=== PATIENT | female | born 1945 ===

== ENCOUNTER 2025-02-15 14:20 | Outpatient (AMB) | payer MEDICARE, SELFPAY ==
--- OUTSIDE RECORDS SUMMARY | 2025-02-15 15:55 | XMS_ITS | Patient Health Record ---
Author Organization [facility] Address [address] [place] [address] Care Team Providers Care Exterior Door Installer Name Role Phone MATHEW COLLINS Primary Care Provider Kinga Macias [phone] Allergies Allergen (clinical drug ingredient) Drug/Non Drug Allergy documented on EMR Reaction Allergy Type Onset Date Status codeine CODEINE Unknown Drug Allergy Active Results Component Value Reference Range Notes Vitamin D, [id number] Reviewed date:07/23/2024 06:57:12 PM Interpretation: Performing Lab:[facility] [place], [address] [facility], Phone - [phone], Director - Homa Notes/Report: Vitamin D, 25-Hydroxy 18.0 30.0-100.0 ng/mL Vitamin D deficiency has been defined by the [place] of [employer] and an Endocrine Society practice guideline as a level of serum 25-OH vitamin D less than 20 ng/mL (1,2). The Endocrine Society went on to further define vitamin D insufficiency as a level between 21 and 29 ng/mL (2). 1. IOM ([place] of [employer]). 2010. Dietary reference intakes for calcium and D. [place]: The National Academies Press. 2. Jeff MF, [place], Tiera HEWITT, et al. Evaluation, treatment, and prevention of vitamin D deficiency: an Endocrine Society clinical practice guideline. JCEM. 2011 Dec; 96(7):1911-30. PDF Report Reviewed date:07/23/2024 06:55:14 PM Interpretation: Performing Lab:[facility] [place], [address] [place], [place], Phone - [phone], Director - Homa Notes/Report: PDF Report Reviewed date:07/03/2024 08:13:05 AM Interpretation: Performing Lab:[facility], [address] [place] [address], Phone - [phone], Director - Pauly Notes/Report: Comp. Metabolic Panel (14)-3 Reviewed date:07/03/2024 08:13:57 AM Interpretation: Performing Lab:[facility], [address] [place] [address], Phone - [phone], Director - Pauly Notes/Report: Glucose 103 70-99 mg/dL BUN 16 8-27 mg/dL Creatinine 0.74 0.57-1.00 mg/dL eGFR 83 >59 mL/min/1.73 BUN/Creatinine Ratio 22 12-28 Sodium 141 134-144 mmol/L Potassium 3.7 3.5-5.2 mmol/L Chloride 100 96-106 mmol/L Carbon Dioxide, Total 25 20-29 mmol/L Calcium 10.1 8.7-10.3 mg/dL Protein, Total 7.7 6.0-8.5 g/dL Albumin 4.5 3.8-4.8 g/dL Globulin, Total 3.2 1.5-4.5 g/dL Bilirubin, Total 0.4 0.0-1.2 mg/dL Alkaline Phosphatase 88 44-121 IU/L AST (SGOT) 17 0-40 IU/L ALT (SGPT) 12 0-32 IU/L PTH, Intact-[id number] Reviewed date:07/03/2024 08:14:06 AM Interpretation: Performing Lab:[facility], [address] [place] [address], Phone - [phone], Director - Pauly Notes/Report: PTH, Intact 33 15-65 pg/mL CBC With Differential/Platel et-[id number] Reviewed date:07/03/2024 08:13:43 AM Interpretation: Performing Lab:[facility], [address] [place] [address], Phone - [phone], Director - Jodry Notes/Report: WBC 8.1 3.4-10.8 x10E3/uL RBC 4.52 3.77-5.28 x10E6/uL Hemoglobin 14.1 11.1-15.9 g/dL Hematocrit 42.9 34.0-46.6 % MCV 95 79-97 fL MCH 31.2 26.6-33.0 pg MCHC 32.9 31.5-35.7 g/dL RDW 12.4 11.7-15.4 % Platelets 374 150-450 x10E3/uL Neutrophils 56 Not Estab. % Lymphs 28 Not Estab. % Monocytes 9 Not Estab. % Eos 6 Not Estab. % Basos 1 Not Estab. % Neutrophils (Absolute) 4.5 1.4-7.0 x10E3/uL Lymphs (Absolute) 2.3 0.7-3.1 x10E3/uL Monocytes(Absolute) 0.7 0.1-0.9 x10E3/uL Eos (Absolute) 0.5 0.0-0.4 x10E3/uL Baso (Absolute) 0.1 0.0-0.2 x10E3/uL Immature Granulocytes 0 Not Estab. % Immature Grans (Abs) 0.0 0.0-0.1 x10E3/uL TSH-[id number] Reviewed date:07/03/2024 09:35:37 AM Interpretation: Performing Lab:[facility], [address] [place] [address], Phone - [phone], Director - Homa Notes/Report: TSH 5.090 0.450-4.500 uIU/mL PDF Report Reviewed date:05/18/2024 08:07:08 AM Interpretation: Performing Lab:[facility], [address] [place] [address], Phone - [phone], Director - Homa Notes/Report: Clinical Information:SRC:UC Urine Culture, Routine-[id number] Reviewed date:05/18/2024 09:14:37 AM Interpretation: Performing Lab:[facility] [address] [place] [address], Phone - [phone], Director - Pauly Notes/Report: Clinical Information:SRC:UC Clinical Information:SRC:UC Urine Culture, Routine Final report Result 1 No growth Urinalysis, Complete-[id number] Reviewed date:05/18/2024 08:08:38 AM Interpretation: Performing Lab:[facility], [address] [place] [address], Phone - [phone], Director - Homa Notes/Report: Clinical Information:SRC:UC Clinical Information:SRC:UC Specific [place] 1.016 1.005-1.030 pH 6.0 5.0-7.5 Urine-Color Claudette Yellow Appearance Cloudy Clear WBC Esterase 2+ Negative Protein 2+ Negative/Trace Glucose Negative Negative Ketones Negative Negative Occult Blood 2+ Negative Bilirubin Negative Negative Urobilinogen,Semi-Qn 0.2 0.2-1.0 mg/dL Nitrite, Urine Negative Negative Microscopic Examination See below: Micr oscopic was indicated and was performed. WBC >30 0 - 5 /hpf RBC >30 0 - 2 /hpf Epithelial Cells (non renal) None seen 0 - 10 /hpf Casts None seen None seen /lpf Bacteria None seen None seen/Few Reason For Referral No Information Medications Medication SIG (Take, Route, Frequency, Duration) Notes Start Date End Date Status Estradiol Vaginal Cream 0.01% 1 Gram to the affected area Vaginal/Vulva Twice a week; Duration: 90 Days 07/29/2024 Active Vitamin D (Ergocalciferol) 45429 UNIT 1 capsule Orally ONCE A WEEK; Duration: 90 days 07/29/2024 Active Lumigan 0.01 % 1 drop into affected eye in the evening Ophthalmic Once a day Active Melatonin 3 MG 1 tablet at bedtime as needed Orally Once a day Active Synthroid 88 MCG 1 tablet in the morn ing on an empty stomach Orally Once a day 07/10/2011 Active Lisinopril-hydroCHLOROthiaz jacinta 20-25 MG TAKE 1 TABLET BY MOUTH EVERY DAY Oral; Duration: 90 Active amLODIPine Besylate 2.5 MG 1 tablet Orally prn Active Simvastatin 10 MG 1 tablet in the even ing Orally 3x a week 07/10/2011 Active Estradiol Vaginal Cream 0.01% 1 Gram to the affected area Vaginal/Vulva Twice a week; Duration: 90 Days 07/24/2023 Active Dorzolamide HCl-Timolol Mal 22.3-6.8 MG/ML Ophthalmic; Duration: 50 A ctive Social History Tobacco Use: Social History Observation Description Date Details (start date - stop date) Never Smoker NA - NA Sexual History Question Answer Notes Had sex in the past 12 months (vaginal, oral, or anal)? No Have you ever had a Sexually transmitted disease ? No AUDIT-C (Standard) Question Answer Notes Did you have a drink contain ing alcohol in the past year? Yes How often did you have a dri nk containing alcohol in the past year? Never (0 point) How many drinks did you have on a typical day when you were drinking in the past year? 1 or 2 drinks (0 point) How often did you have six o r more drinks on one occasion in the past year? Less than monthly (1 point) Points 1 Interpretation Negative Tobacco Control (Standard) Question Answer Notes Tobacco use: Nonsmoker Section Notes: Nutrition: Average Text messaging while driving: no Marital status: Lives with: spouse Children: 3 children Occupation: employed full-time Nutrition: average diet Exercise: regular walking Sexual activity: monogamous relationship. Contraception: N/A Tobacco exposure: No smokers in home. Illicit drugs: no Seatbelt: yes Sunscreen: yes Nutrition: Average Text messaging while driving: no Marital status: Lives with: spouse Children: 3 children Occupation: employed full-time Nutrition: average diet Exercise: regular walking Sexual activity: monogamous relationship. Contraception: N/A Tobacco exposure: No smokers in home. Illicit drugs: no Seatbelt: yes Sunscreen: yes Problems Problem Type SNOMED Code ICD Code Onset Dates Problem Status W/U Status Risk Notes Problem Postmenopausal atrophic vaginitis (29306407) Postmenopausal atrophic vaginitis (N95.2) Active confirmed Problem Age-related osteoporosis (960789522) Age-related osteoporosis without current pathological fracture (M81.0) Active confirmed Problem Disorder of bone (19679225) Other specified disorders of bone density and structure, multiple sites (M85.89) Active confirmed Problem Screening for malignant neoplasm of breast (604317463) Encounter for screening mammogram for malignant neoplasm of breast (Z12.31) Active confirmed Problem Vitamin D deficiency (01197374) Vitamin D deficiency, unspecified (E55.9) Active confirmed Problem Extremely dense breast composition (finding) (977277746) Dense breasts, unspecified (R92.30) Active confirmed Problem Hypothyroidism (02146898) Unspecified hypothyroidism (244.9) Active confirmed Major Problem Hyperlipidemia (40998351) Other and unspecified hyperlipidemia (272.4) Active confirmed Major Problem Essential hypertension (83085917) Unspecified essential hypertension (401.9) Active confirmed Major Problem Menopausal symptom (52054896) Symptomatic menopausal or female climacteric states (627.2) Active confirmed Major Problem Postmenopausal atrophic vaginitis (48348702) Postmenopausal atrophic vaginitis (627.3) Active confirmed Diag Problem Gynecological examination normal (570645016873497) Routine gynecological examination (V72.31) Active confirmed Major Problem Screening for malignant neoplasm of cervix (398779998) Screening for malignant neoplasm of the cervix (V76.2) Active confirmed Major Problem Screening for malignant neoplasm of colon (755136315) Special screening for malignant neoplasms, colon (V76.51) Active confirmed Major Vital Signs Temperature 97.9 degrees Fahrenheit 07/29/2024 Repe at BP: 164/86 Blood pressure diastolic 90 mm Hg 07/29/2024 Rep eat BP: 164/86 Height 62.5 in 07/29/2024 Repeat BP: 164/ 86 Blood pressure systolic 190 mm Hg 07/29/2024 Repe at BP: 164/86 Weight 136 lbs 07/29/2024 Repeat BP: 164/ 86 BMI 24.48 kg/m2 07/29/2024 Repeat BP: 164/ 86 Encounters Encounter Location Date Provider Diagnosis Total [address] [address] 07/29/2024 Kinga Cruz Encounter for screening mammogram for malignant neoplasm of breast Z12.31 ; Age-related osteoporosis without current pathological fracture M81.0 ; Vitamin D deficiency, unspecified E55.9 ; Postmenopausal atrophic vaginitis N95.2 ; Family history of malignant neoplasm of breast Z80.3 ; Dense breasts, unspecified R92.30 and Encounter for gynecological examination (general) (routine) without abnormal findings Z01.[address] [employer] [address] [address] 05/15/2024 Kinga Cruz Dysuria R30.[address] [address] 05/19/2024 Kinga Cruz Total [address] [address] 05/25/2024 Kinga Cruz Disorder of bone density and structure, unspecified M85.[address] [address] 07/18/2024 Kinga Cruz Other specified disorders of bone density and structure, multiple sites M85.[address] [address] 07/30/2024 Kinga Cruz Inconclusive mammogr am R92.2 and Family history of malignant neoplasm of breast Z80.3 Assessments Encounter Date Diagnosis (ICD Code) Assessment Notes Treatment Notes Treatment Clinical Notes Section Notes 05/15/2024 Dysuria (ICD-10 - R30.0) 05/25/2024 Disorder of bone density and structure, unspecified (ICD-10 - M85.9) 07/18/2024 Other specified disorders of bone density and structure, multiple sites (ICD-10 - M85.89) 07/29/2024 Encounter for screening mammogram for malignant neoplasm of breast (ICD-10 - Z12.31) REGULAR MAMMOGRAMS AND SBE'S WERE RECOMMENDED. 07/30/2024 Inconclusive mammogram (ICD-10 - R92.2) 07/30/2024 Family history of malignant neoplasm of breast (ICD-10 - Z80.3) 07/29/2024 Age-related osteoporosis without current pathological fracture (ICD-10 - M81.0) DISCUSSED HER LAST BMD AND OSTEOPOROSIS AND ITS IMPACT ON HER HEALTH. ADEQUATE CALCIUM AND VIT D. WEIGHT BEARING EXERCISES. OSTEO PRECAUTIONS. DISCUSSED RESULTS OF OSTEO WORK UP SHOWING LOW VIT D AND HIGH TSH. ADVISED PAT TO SEE HER PCP REGARDING HIGH TSH LEVELS POINTING TO NEED TO READJUST HER THYROID REPLACEMENT THERAPY. 07/29/2024 Vitamin D deficiency, unspecified (ICD-10 - E55.9) DISCUSSED VERY LOW VIT D LEVELS AND ITS IMPACT ON HER BONES AND HER HEALTH. THIS MAY BE CONTRIBUTING LARGELY TO HER OSTEOPOROSIS. RX FOR VIT D AND INSTRUCTIONS WERE GIVEN. RECHECK VIT D IN 3 MONTHS. 07/29/2024 Postmenopausal atrophic vaginitis (ICD-10 - N95.2) CONTINUE ESTRADIOL CREAM. 07/29/2024 Family history of malignant neoplasm of breast (ICD-10 - Z80.3) 07/29/2024 Dense breasts, unspecified (ICD-10 - R92.30) DISCUSSED DENSE BREASTS ON MAMMOGRAM AND ITS IMPLICATIONS. 3D MAMMOGRAMS WERE RECOMMENDED. SCREENING BREAST ULTRASOUND IN AUGUST 2024. 07/29/2024 Encounter for gynecological examination (general) (routine) without abnormal findings (ICD-10 - Z01.419) NO MORE PAP TESTS. Plan Of Treatment Pending Test Test Name Order Date MAMMOGRAM, SCREENING 07/15/2020 MAMMOGRAM, SCREENING 07/23/2022 MAMMOGRAM, SCREENING 07/24/2023 MAMMOGRAM, SCREENING 07/29/2024 25OH VITAMIN D 06/26/2018 25OH VITAMIN D 01/21/2018 COMPREHENSIVE METABOLIC PANEL 01/21/2018 N-TELOPEPTIDE CROSS 06/26/2018 N-TELOPEPTIDE CROSS 01/21/2018 PTH, INTACT 01/21/2018 PTH, INTACT 06/26/2018 TSH 01/21/2018 BONE DENSITY 07/24/2023 BONE DENSITY 07/19/2021 MM Digital Mammo Screening 07/23/2022 MM Digital Mammo Screening 07/24/2023 MM Digital Mammo Screening 07/15/2020 MM Digital Mammo Screening 07/19/2021 MM Digital Mammo Screening 07/29/2024 Screening Bilateral Breast Ultrasound Screening Bilateral Breast Ultrasound Screening Bilateral Breast Ultrasound Screening Bilateral Breast Ultrasound Vitamin D, [id number] 05/25/2024 Next Appt Details Provider Name:Kinga Trujillo darell, 08/02/2025 11:00:00 AM, [address] [facility], [address], [place], [address], Insurance Providers Payer Name Payer Address Payer Phone Subscriber Number Group Number Insured Name Patient Relationship to Insured Coverage Start Date Coverage End Date MEDICARE [address] [facility] [place] [id number] EMMA ACEVEDO Self - patient is the insured MEDEX [address] [place] [address] [id number] EMMA ACEVEDO Self - patient is the insured Medical (General) History Medical History History ICD Code Postmenopausal atrophic vaginitis N95.2 Hyperlipidemia, unspecified E78.5 Essential (primary) hypertension I10 Hypothyroidism, unspecified E03.9 Menopausal and female climacteric states N95.1 Disorder of bone density and structure, unspecified M85.9 Family history of malignant neoplasm of breast Z80.3 Inconclusive mammogram R92.2 Other specified disorders of bone densit y and structure, multiple sites M85.89 Mammographic heterogeneous density, bila teral breasts R92.333 Age-related osteoporosis without current pathological fracture M81.0 Surgical History Surgery Date(Month/Year) Tonsillectomy Sinus surgery Colonoscopy Lt Breast Bx - Benign Hospitalization History Reason Date(Month/Year) See Surgical Hx 3 Vaginal Deliveries
== END 2025-02-16 14:06 | disposition home or self-care (01) ==
PROVIDERS: PCP Internal Medicine; Visit Provider Registered Nurse Emergency
DX: J30.89 Other allergic rhinitis (principal)
CPT/HCPCS: 95117; 95165

== ENCOUNTER 2025-03-15 13:48 | Outpatient (AMB) | payer MEDICARE, SELFPAY | END 2025-03-15 13:54 | disposition home or self-care (01) | LOC: HO.HMGAL 13:48 | PROVIDERS: PCP Internal Medicine; Visit Provider Registered Nurse Emergency | DX: J30.89 Other allergic rhinitis (principal) | CPT/HCPCS: 95117; 95165 ==

== ENCOUNTER 2025-04-14 12:42 | Outpatient (AMB) | payer MEDICARE, SELFPAY ==
--- OUTSIDE RECORDS SUMMARY | 2025-04-14 17:33 | XMS_ITS | Patient Health Record ---
Author Organization [facility] Address [address] [place] [address] Care Team Providers Care Wheel Cleaner Name Role Phone MATHEW COLLINS Primary Care Provider Kinga Macias [phone] Allergies Allergen (clinical drug ingredient) Drug/Non Drug Allergy documented on EMR Reaction Allergy Type Onset Date Status codeine CODEINE Unknown Drug Allergy Active Results Component Value Reference Range Notes Vitamin D, [id number] Reviewed date:07/23/2024 06:57:12 PM Interpretation: Performing Lab:[facility] [place], [address] [facility], Phone - [phone], Director - Homa Notes/Report: Vitamin D, 25-Hydroxy 18.0 30.0-100.0 ng/mL Vitamin D deficiency has been defined by the [place] of [employer] and an Endocrine Society practice guideline as a level of serum 25-OH vitamin D less than 20 ng/mL (1,2). The Endocrine Society went on to further define vitamin D insufficiency as a level between 21 and 29 ng/mL (2). 1. IOM ([place] of [employer]). 2010. Dietary reference intakes for calcium and D. [place]: The National Academies Press. 2. Jeff MF, [place], Tiera HEWITT, et al. Evaluation, treatment, and prevention of vitamin D deficiency: an Endocrine Society clinical practice guideline. JCEM. 2011 Dec; 96(7):1911-30. PDF Report Reviewed date:07/23/2024 06:55:14 PM Interpretation: Performing Lab:[facility] [place], [address] [place], [place], Phone - [phone], Director - Homa Notes/Report: PDF Report Reviewed date:07/03/2024 08:13:05 AM Interpretation: Performing Lab:[facility], [address] [place] [address], Phone - [phone], Director - Pauly Notes/Report: Comp. Metabolic Panel (14)-3 Reviewed date:07/03/2024 08:13:57 AM Interpretation: Performing Lab:[facility], [address] [place] [address], Phone - [phone], Director - Pauly Notes/Report: Glucose 103 70-99 [...] IU/L ALT (SGPT) 12 0-32 IU/L PTH, Intact-[id number] Reviewed date:07/03/2024 08:14:06 AM Interpretation: Performing Lab:[facility], [address] [place] [address], Phone - [phone], Director - Pauly Notes/Report: PTH, Intact 33 15-65 pg/mL CBC With Differential/Platel et-[id number] Reviewed date:07/03/2024 08:13:43 AM Interpretation: Performing Lab:[facility], [address] [place] [address], Phone - [phone], Director - Jodry Notes/Report: WBC 8.1 3.4-10.8 [...] % Immature Grans (Abs) 0.0 0.0-0.1 x10E3/uL TSH-[id number] Reviewed date:07/03/2024 09:35:37 AM Interpretation: Performing Lab:[facility], [address] [place] [address], Phone - [phone], Director - Homa Notes/Report: TSH 5.090 0.450-4.500 uIU/mL PDF Report Reviewed date:05/18/2024 08:07:08 AM Interpretation: Performing Lab:[facility], [address] [place] [address], Phone - [phone], Director - Homa Notes/Report: Clinical Information:SRC:UC Urine Culture, Routine-[id number] Reviewed date:05/18/2024 09:14:37 AM Interpretation: Performing Lab:[facility] [address] [place] [address], Phone - [phone], Director - Pauly Notes/Report: Clinical Information:SRC:UC Clinical Information:SRC:UC Urine Culture, Routine Final report Result 1 No growth Urinalysis, Complete-[id number] Reviewed date:05/18/2024 08:08:38 AM Interpretation: Performing Lab:[facility], [address] [place] [address], Phone - [phone], Director - Homa Notes/Report: Clinical Information:SRC:UC Clinical Information:SRC:UC Specific [place] 1.016 1.005-1.030 pH 6.0 5.0-7.5 Urine-Color Claudette [...] 90 Days 07/29/2024 Active Vitamin D (Ergocalciferol) 88425 UNIT 1 capsule Orally ONCE A WEEK; [...] Status Risk Notes Problem Postmenopausal atrophic vaginitis (02982548) Postmenopausal atrophic vaginitis (N95.2) Active confirmed Problem Age-related osteoporosis (573711094) Age-related osteoporosis without current pathological fracture (M81.0) Active confirmed Problem Disorder of bone (89201948) Other specified disorders of bone density and structure, multiple sites (M85.89) Active confirmed Problem Screening for malignant neoplasm of breast (838581379) Encounter for screening mammogram for malignant neoplasm of breast (Z12.31) Active confirmed Problem Vitamin D deficiency (96411844) Vitamin D deficiency, unspecified (E55.9) Active confirmed Problem Extremely dense breast composition (finding) (924342659) Dense breasts, unspecified (R92.30) Active confirmed Problem Hypothyroidism (26904959) Unspecified hypothyroidism (244.9) Active confirmed Major Problem Hyperlipidemia (45764661) Other and unspecified hyperlipidemia (272.4) Active confirmed Major Problem Essential hypertension (91215186) Unspecified essential hypertension (401.9) Active confirmed Major Problem Menopausal symptom (83972315) Symptomatic menopausal or female climacteric states (627.2) Active confirmed Major Problem Postmenopausal atrophic vaginitis (17739697) Postmenopausal atrophic vaginitis (627.3) Active confirmed Diag Problem Gynecological examination normal (584423288206009) Routine gynecological examination (V72.31) Active confirmed Major Problem Screening for malignant neoplasm of cervix (153188735) Screening for malignant neoplasm of the cervix (V76.2) Active confirmed Major Problem Screening for malignant neoplasm of colon (613826079) Special screening for malignant neoplasms, colon (V76.51) [...] Encounters Encounter Location Date Provider Diagnosis Total [address] [address] 07/29/2024 Kinga Cruz Encounter for screening mammogram for malignant neoplasm of breast Z12.31 ; Age-related osteoporosis without current pathological fracture M81.0 ; Vitamin D deficiency, unspecified E55.9 ; Postmenopausal atrophic vaginitis N95.2 ; Family history of malignant neoplasm of breast Z80.3 ; Dense breasts, unspecified R92.30 and Encounter for gynecological examination (general) (routine) without abnormal findings Z01.[address] [employer] [address] [address] 05/15/2024 Kinga Cruz Dysuria R30.[address] [address] 05/19/2024 Kinga Cruz Total [address] [address] 05/25/2024 Kinga Cruz Disorder of bone density and structure, unspecified M85.[address] [address] 07/18/2024 Kinga Cruz Other specified disorders of bone density and structure, multiple sites M85.[address] [address] 07/30/2024 Kinga Cruz Inconclusive mammogr am R92.2 [...] Ultrasound Screening Bilateral Breast Ultrasound Vitamin D, [id number] 05/25/2024 Next Appt Details Provider Name:Kinga Trujillo darell, 08/02/2025 11:00:00 AM, [address] [facility], [address], [place], [address], Insurance Providers Payer Name Payer Address Payer Phone Subscriber Number Group Number Insured Name Patient Relationship to Insured Coverage Start Date Coverage End Date MEDICARE [address] [facility] [place] [id number] [phone] [id number] EMMA ACEVEDO Self - patient is the insured MEDEX [address] [place] [address] [id number] EMMA ACEVEDO Self - patient is [...]
== END 2025-04-14 12:42 | disposition home or self-care (01) ==
LOC: HO.HMGAL 12:42
PROVIDERS: PCP Internal Medicine; Visit Provider Registered Nurse Emergency
DX: J30.89 Other allergic rhinitis (principal)
CPT/HCPCS: 95117; 95165

== ENCOUNTER 2025-05-24 12:49 | Outpatient (AMB) | payer MEDICARE, SELFPAY | END 2025-05-24 12:50 | disposition home or self-care (01) | LOC: HO.HMGAL 12:49 | PROVIDERS: PCP Internal Medicine; Visit Provider Registered Nurse Emergency | DX: J30.89 Other allergic rhinitis (principal) | CPT/HCPCS: 95117; 95165 ==